=== PATIENT | male | born 2000 | race Caucasian/White ===

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

== ENCOUNTER 2019-08-08 17:57 | Emergency (ER) | payer OTHER, BC ==
[2019-08-08] MEDS ORDERED: Lidocaine 1% with EPINEPHrine 1:100,000 10 ML MDV INFILT ONE (17:58)
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
[2019-08-08 19:37] VITALS: BP 121/69; PULSE 73
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
== END 2019-08-08 19:40 | disposition home or self-care (01) ==
LOC: FB.ED 17:57
DX: S01.01XA Laceration without foreign body of scalp, initial encounter (principal); S41.011A Laceration without foreign body of right shoulder, initial encounter; S51.811A Laceration without foreign body of right forearm, initial encounter; S61.411A Laceration without foreign body of right hand, initial encounter; S01.111A Laceration without foreign body of right eyelid and periocular area, initial encounter; S80.01XA Contusion of right knee, initial encounter; V69.9XXA Occupant (driver) (passenger) of heavy transport vehicle injured in unspecified traffic accident, initial encounter
CPT/HCPCS: 12004; 12011; 70450; 73562-RT; 99284-25

== ENCOUNTER 2020-02-25 01:59 | Emergency (ER) | payer BC, OTHER ==
[2020-02-25] MEDS ORDERED: Loratadine 10 MG Tab PO ONE (02:16)
[2020-02-25] MEDS ORDERED: methylPREDNISolone Sodium Succinate 125 MG/2 ML SDV IVPUSH ONE (02:16)
[2020-02-25] MEDS ORDERED: Famotidine 20 MG/2 ML SDV IVPUSH ONE (02:16)
[2020-02-25] MEDS ORDERED: diphenhydrAMINE 50 MG/ML SDV IVPUSH ONE (02:16)
--- NOTE | 2020-02-25 02:23 | EDM.PDOC ---
ED HPI GENERAL MEDICAL PROBLEM - General Stated Complaint: ALLERGIC REACTION Time Seen by Provider: 02/25/20 02:05 Source of Information: Reports: Patient History Limitations: Reports: No Limitations - History of Present Illness INITIAL COMMENTS - FREE TEXT/NARRATIVE: c/o allergic reaction pt states he looked in the mirror and his face was red, thinks he is having an allergic reaction, does not know to what says he has eczema, has not had an allergic reaction before no h/o asthma or hayfever farms, was home today, did go to a [employer], ate a steak, had alcohol to drink ate beans, 2 salads, not different food than he has had in the past says he feels it is difficult to breath an pul PE is wnl no daily meds, did start vit D yesterday, ate candy today that was new for him has itching of his L hand where IV is placed - Related Data Allergies Allergy/AdvReac Type Severity Reaction Status Date / Time No Known Allergies Allergy Verified 08/08/19 19:15 Home Meds: Home Meds Famotidine 20 mg PO DAILY #5 tablet 02/25/20 [Rx] Loratadine 10 mg PO DAILY #30 tablet 02/25/20 [Rx] predniSONE 20 mg PO DAILY #6 tab 02/25/20 [Rx] Past Medical History - Past Health History Medical/Surgical History: Denies Medical/Surgical History ED ROS GENERAL - Review of Systems Review Of Systems: See Below Constitutional: Reports: No Symptoms HEENT: Reports: No Symptoms Respiratory: Reports: No Symptoms Cardiovascular: Reports: No Symptoms Endocrine: Reports: No Symptoms GI/Abdominal: Reports: No Symptoms : Reports: No Symptoms Musculoskeletal: Reports: No Symptoms Skin: Reports: Pruritis, Change in Color, Urticaria Neurological: Reports: No Symptoms Psychiatric: Reports: No Symptoms Hematologic/Lymphatic: Reports: No Symptoms Immunologic: Reports: No Symptoms ED EXAM, GENERAL - Physical Exam Exam: See Below Exam Limited By: No Limitations General Appearance: Alert, WD/WN, No Apparent Distress Eye Exam: Bilateral Eye: EOMI, PERRL Ears: Normal External Exam, Hearing Grossly Normal Nose: Normal Inspection, Normal Mucosa, No Blood. No: Nasal Swelling, Nasal Drainage Throat/Mouth: Normal Inspection, Normal Lips, Normal Teeth, Normal Gums, Normal Oropharynx, Normal Voice, No Airway Compromise, Other (uvula no swell, tongue no swell, voice wnl) Head: Atraumatic, Normocephalic Neck: Normal Inspection, Supple, Non-Tender, Full Range of Motion. No: Lymphadenopathy (R), Lymphadenopathy (L) Respiratory/Chest: No Respiratory Distress, Lungs Clear, Normal Breath Sounds, No Accessory Muscle Use, Chest Non-Tender, Other (no dyspnea, no cough). No: Respiratory Distress, Rales, Rhonchi, Wheezing Cardiovascular: Regular Rate, Rhythm, No Edema, No JVD GI/Abdominal: Soft, Non-Tender, No Distention Back Exam: Normal Inspection, Full Range of Motion, NT Extremities: Normal Inspection, Normal Range of Motion, Non-Tender, No Pedal Edema Neurological: Alert, Oriented, CN II-XII Intact, Normal Cognition, Normal Gait, No Motor/Sensory Deficits Psychiatric: Normal Affect, Normal Mood Skin Exam: Other (bright red blotchy rash of face and hands mainly, also neck and UEs, red flush to back with dermatographism immediately with mild red and no swell, does have mild raised wheals of forehead) Lymphatic: No Adenopathy Course - Vital Signs Last Recorded V/S: Last Vital Signs Temp 36.4 C 02/25/20 02:00 Pulse Resp BP Pulse Ox - Orders/Labs/Meds Labs: Laboratory Tests 02/25/20 02/25/20 02/25/20 Range/Units 02:35 02:35 02:55 WBC 6.1 (3.2-10.1) x10-3/uL RBC 4.76 (3.90-5.90) x10(6)uL Hgb 14.3 (12.9-17.7) g/dL Hct 42.8 (38.3-50.1) % MCV 89.9 (80.8-98.7) fL MCH 30.1 (27.0-33.3) pg MCHC 33.4 (28.7-35.3) g/dL RDW 12.6 (12.4-15.0) % Plt Count 209 (117-477) x10(3)uL MPV 7.3 (6.7-11.0) fL Neut % (Auto) 42.5 (40.3-71.8) % Lymph % (Auto) 46.6 H (15.8-45.3) % [place] % (Auto) 5.5 (5.5-15.2) % Eos % (Auto) 4.5 (0.1-6.8) % Baso % (Auto) 0.9 (0.3-3.8) % Neut # (Auto) 2.6 (1.7-6.9) x10-3/uL Lymph # (Auto) 2.8 (0.5-4.5) x10-3/uL [place] # (Auto) 0.3 (0.0-1.2) x10-3/uL Eos # (Auto) 0.3 (0.0-0.6) x10-3/uL Baso # (Auto) 0.1 (0.0-0.3) x10-3/uL Sodium 144 (135-145) mmol/L Potassium 3.5 (3.5-5.3) mmol/L Chloride 105 (100-110) mmol/L Carbon Dioxide 25 (21-32) mmol/L BUN 13 (7-18) mg/dL Creatinine 1.1 (0.70-1.30) mg/dL Est Cr Clr Drug Dosing TNP Estimated GFR (MDRD) > 60 (>60) BUN/Creatinine Ratio 11.8 (9-20) Glucose 82 (80-116) mg/dL Calcium 9.0 (8.6-10.2) mg/dL Total Bilirubin 0.7 (0.1-1.3) mg/dL AST 13 (5-25) IU/L ALT 17 (12-36) U/L Alkaline Phosphatase 59 (56-112) IU/L Total Protein 7.6 (6.0-8.0) g/dL Albumin 4.2 (3.5-5.2) g/dL Globulin 3.4 g/dL Albumin/Globulin Ratio 1.2 SARS-CoV-2 RNA (ELOINA) Negative (NEGATIVE) Meds: Medications Discontinued Medications Generic Name Dose Route Start Last Admin Trade Name Freq PRN Reason Stop Dose Admin Diphenhydramine HCl 50 mg 02/25/20 02:16 02/25/20 02:33 Benadryl IVPUSH 02/25/20 02:17 50 mg ONETIME ONE Administration Famotidine 20 mg in 50 mls @ 100 mls/hr 02/25/20 02:45 02/25/20 02:51 Famotidine In Ns Premix IV 02/25/20 03:14 100 mls/hr ONETIME ONE Administration Loratadine 10 mg 02/25/20 02:16 02/25/20 02:26 Claritin PO 02/25/20 02:17 10 mg ONETIME ONE Administration Methylprednisolone Sodium Succinate 125 mg 02/25/20 02:16 02/25/20 02:28 Solu-Medrol IVPUSH 02/25/20 02:17 125 mg ONETIME ONE Administration - Re-Assessments/Exams Free Text/Narrative Re-Assessment/Exam: 02/25/20 04:24 rash resolved completely with meds, pt fell soundly asleep after the Benadryl trigger uncertain, new exposure is vit D pill no evidence of pul or airway involvement pt has h/o eczema and may have underlying allergies that he does not know about previously Departure - Departure Time of Disposition: 04:13 Disposition: Home, Self-Care 01 Condition: Good Clinical Impression: Hives - Discharge Information *PRESCRIPTION DRUG MONITORING PROGRAM REVIEWED*: Not Applicable *COPY OF PRESCRIPTION DRUG MONITORING REPORT IN PATIENT UMESH: Not Applicable Prescriptions: Famotidine 20 mg PO DAILY #5 tablet Loratadine 10 mg PO DAILY #30 tablet predniSONE 20 mg PO DAILY #6 tab Instructions: Hives Additional Instructions: You blood tests (blood counts and chemistries) are within normal limits. Your COVID test is negative. You had an allergic reaction which is called hives or urticaria. It is typically due to exposure to an allergen that is ingested (food or medicine), inhaled or from direct skin contact (detergent, soap or cologne) It is possible to have a reaction to something that one has been exposed to for years even though one has never had a reaction in the past. It could be from the vitamin D pill or even something in the vapor of the e-cigarette. If the allergen can be identified, you will to avoid it for the rest of your life. To help prevent the hives from reoccurring, take the steroid prednisone 20 mg 2 tabs today and then 1 tab daily for 4 days. Take the antihistamine loratadine 10 mg 1 tab daily for 5 days, longer if needed, which can also help with eczema in some cases. Take the antihistamine famotidine 20 mg 1 tab daily for 5 days. See your doctor in 2 days for further recommendations. Return to the Emergency Department if you are feeling worse. Sepsis Event Note (ED) - Focused Exam Vital Signs: Vital Signs Temp 02/25/20 02:00 36.4 C
[2020-02-25] MEDS ORDERED: Famotidine/Normal Saline 20 MG/50 ML BAG IV ONE (02:45)
== END 2020-02-25 04:35 | disposition home or self-care (01) ==
LOC: FB.ED 01:59
DX: L50.9 Urticaria, unspecified (principal); Z20.828 Contact with and (suspected) exposure to other viral communicable diseases
CPT/HCPCS: 36415; 80053; 85025; 87635; 96365; 96375; 99283; A9270; J1200; J2930; 99284; U0002